=== PATIENT | female | born 1970 | race Caucasian/White ===

== ENCOUNTER → 2022-06-11 | Day surgery (SDC) | payer SELFPAY ==
--- NOTE | 2022-06-13 11:26 | USB ---
Risk Values: Trudi 5 year model risk: 0.6%. NCI Lifetime model risk: 6.1%. Pathology Description: Location: 9 o'clock. Marker Left Behind. Needle Type: Bard 14g x 10cm Cores: 4 Skin Nicks: 1 Gauge: 14 The procedure of ultrasound guided core biopsy was explained to the patient. Benefits, alternatives, and risks were discussed. An informed consent was then obtained. The patient was placed in supine positioning for imaging and for the procedure. The overlying skin was prepped and draped in usual sterile fashion. Lidocaine buffered with bicarbonate was used as anesthetic into the skin and subcutaneous tissue up to area of concern in the left breast. A vera was made with surgical scalpel. Under ultrasound guidance, a 12-gauge vacuum assisted biopsy gun device was used to obtain 8 core samples. Following this, a biopsy clip was left in lesion. It was then discovered that no samples were obtained. A post procedure mammogram for clip placement verification was then taken to confirm location. Rebiopsy was then performed Under ultrasound guidance, a 14 gauge biopsy gun device was used to obtain 3 core samples. Following this, a biopsy clip was left in lesion. The patient was transferred to mammography for physician ordered post procedure mammogram for clip placement verification. The patient tolerated the procedure well without any immediate complication. The patient was kept in the radiology department for short stay after the procedure and then discharged home in stable condition. Impression: Successful, ultrasound guided core biopsy of area of concern in the left breast, full pathology results to follow. 2 biopsy clips were placed one on each side of the lesion. Pathology Results: Result: Benign, Fibroadenoma. LEFT BREAST, NINE O'CLOCK, CORE BIOPSY: Fibroepithelial lesion with myxoid change, favor fibroadenoma. Close clinical follow up with correlation with imaging studies is suggested, as indicated. Overall Assessment: Benign Management: Diagnostic Breast Ultrasound of the left breast in 6 months. Electronically signed and approved by: Kelvin Foss DO
== END ==
LOC: RADUSWWP 07:56
PROVIDERS: ATTEND Surgery
DX: D24.2 Benign neoplasm of left breast (principal); N64.89 Other specified disorders of breast
CPT/HCPCS: 88305; 19083; A4648

== ENCOUNTER → 2022-06-20 | Outpatient (CLI) | payer OTHER ==
--- NOTE | 2022-06-11 11:09 | MM ---
Reason for Exam: Post Procedure Mammogram. Risk Values: Trudi 5 year model risk: 0.6%. NCI Lifetime model risk: 6.1%. Tissue Density: Left: The breast tissue is heterogeneously dense. This may lower the sensitivity of mammography. Overall Assessment: Post procedure mammogram for marker placement Management: Post Mammogram for Galo Placement Electronically signed and approved by: Kelvin Foss DO
--- NOTE | 2022-06-11 11:10 | MM ---
Reason for Exam: Additional evaluation requested from abnormal screening. Risk Values: Trudi 5 year model risk: 0.6%. NCI Lifetime model risk: 6.1%. Tissue Density: Left: The breast tissue is heterogeneously dense. This may lower the sensitivity of mammography. Overall Assessment: Post procedure mammogram for marker placement Management: Post Mammogram for Galo Placement Electronically signed and approved by: Kelvin Foss DO
--- NOTE | 2022-06-20 16:28 | P.GSHP ---
History of Present Illness H&P Date: 06/20/22 Chief Complaint: probable fibroadenoma left breast Laverne is a 51 year old white female status post bilateral screening mammogram on [id number]. Chronic nodularity in the right breast was noted. Focal asymmetry in the left breast required additional evaluation. He subsequently underwent a left breast diagnostic mammogram and left breast ultrasound. Left breast ultrasound revealed a 0.7 x 0.8 cm lesion for which core [place]. [place] [id number]. Pathology revealed fibroepithelial lesion with myxoid change, fever fibroadenoma. The x-rays were reviewed with Dr. James and person and it is felt to be benign concordant. The patient did not feel any lumps masses or nodules of concern in her breast. This was a routine screening mammogram. He tolerated the biopsy without difficulty. She has never had any surgery on her breast in the past. Not had any recent trauma or infection in the past. Caffeine: 2 cups coffee/day nicotine: none stopped 5 years ago chocolate: dark chocolate daily BCP: 5 eyars Family History: maternal grandmother: cervical cancer father: prostate cancer Hormonal History: menarche: 14 M1, breast fed: no, age at first : 19 hysterectomy done 1 year ago for fibroids left ovaries Surgical History: Hysterectomy did not remove ovaries 1/2 thyroid removed for a nodules not cancer Medical History: Hypothyroid Social history: Nicotine: As above Alcohol: social on weekends drugs: none - Constitutional Constitutional: Denies chills, Denies fever - EENT Eyes: denies blurred vision, denies pain Ears: deny: decreased hearing, tinnitus Ears, nose, mouth and throat: Denies headache, Denies sore throat - Breasts Breasts: bilateral: as per HPI - Cardiovascular Cardiovascular: Denies chest pain, Denies shortness of breath - Respiratory Respiratory: Denies cough, Denies 7 - Gastrointestinal Gastrointestinal: Denies abdominal pain, Denies diarrhea, Denies nausea, Denies vomiting - Genitourinary (Female) Genitourinary: Denies dysuria, Denies hematuria - Menstruation Menstruation: Reports post hysterectomy - Musculoskeletal Musculoskeletal: Denies myalgias - Integumentary Integumentary: Denies pruritus, Denies rash - Neurological Neurological: Denies numbness, Denies weakness - Psychiatric Psychiatric: Denies anxiety, Denies depression - Endocrine Endocrine: Denies fatigue, Denies weight change - Hematologic/Lymphatic Comment: none - Allergic/Immunologic Allergic/Immunologic: Reports as per HPI Past Medical History Past Medical History: Thyroid Disorder History of Any Multi-Drug Resistant Organisms: None Reported Past Surgical History: Hysterectomy Additional Past Surgical History / Comment(s): partial thyroidectomy 2010 Past Anesthesia/Blood Transfusion Reactions: No Reported Reaction Past Psychological History: No Psychological Hx Reported Smoking Status: Former smoker Past Alcohol Use History: Occasional Additional Past Alcohol Use History / Comment(s): quit smoking 2017 Past Drug Use History: None Reported Medications and Allergies Home Medications Medication Instructions Recorded Confirmed Type Levothyroxine Sodium [Synthroid] 100 mcg PO DAILY 05/30/22 06/20/22 History Allergies Allergy/AdvReac Type Severity Reaction Status Date / Time No Known Allergies Allergy Verified 06/20/22 16:04 Surgical - Exam Vital Signs Temp Pulse Resp BP Pulse Ox 97.4 F L 100 17 139/86 97 06/20/22 16:05 06/20/22 16:05 06/20/22 16:05 06/20/22 16:05 06/20/22 16:05 - General no distress - Eyes normal ocular movement - ENT no hearing loss - Neck trachea midline - Respiratory normal respiratory effort - Cardiovascular Rhythm: regular Heart Sounds: normal: S1, S2 - Abdomen Abdomen: soft, non tender, no guarding, no rigid, no rebound - Integumentary normal turgor - Musculoskeletal normal gait, normal posture - Psychiatric oriented to time, oriented to person, oriented to place, speech is normal, memory intact Breast Exam: BRA: 36C inspection: bilateral grade 2 ptosis Palpation: Right breast multiple positional exam fibrocystic changes in the 12 o'clock position higher to the chest wall that appears to be a sebaceous cyst which is tender to palpation this does not appear to be in the parenchyma of the breast Right axilla: No adenopathy of concern Left breast: Multiple positional exam fibrocystic changes no dominant masses or nodules of concern Left axilla: No adenopathy of concern Results Mammogram and ultrasound reviewed with Dr. James Assessment and Plan Assessment: Impression: Right breast subcutaneous nodule most likely sebaceous cyst not seen radiographically of concern Left breast area of concern status post core biopsy most likely fibroadenoma Plan: Repeat left breast ultrasound in 6 months with a physician exam at that time to ascertain that this is not increasing in size Close surveillance of sebaceous cyst/have given the patient the option of resection in the operating room of this and she has declined Cc: Mattie Jacobo
[2022-06-20 16:36] VITALS: BP 139/86; PULSE 100; RESP 17; TEMP 97.4
== END ==
LOC: WWCWWP 15:56
PROVIDERS: ATTEND Surgery
DX: Z01.411 Encounter for gynecological examination (general) (routine) with abnormal findings (principal); Z87.891 Personal history of nicotine dependence
CPT/HCPCS: 77065

== ENCOUNTER → 2022-12-29 | Outpatient (CLI) | payer OTHER ==
--- NOTE | 2022-12-29 09:01 | USB ---
Reason for Exam: Follow-up at short interval from prior study. Patient History: 06/11/2022, Benign US biopsy breast VAD LT on the left side. Risk Values: Trudi 5 year model risk: 0.7%. NCI Lifetime model risk: 7.0%. Technique: Method: Targeted. Patient Position: Supine. Prior Study Comparison: 06/11/2022 Left MG diagnostic mammo LT wo CAD., [facility]. 06/11/2022 Left MG diagnostic mammo LT wo CAD., [facility]. Findings: The whole breast of the left breast, the axilla of the left breast and the retroareolar of the left breast were scanned. Imaged: Ultrasound imaging of: Area of concern, retroareolar region and axilla. Stable appearing the lesion at 9:00 4 cm from nipple, biopsy proven fibroadenoma. No evidence for organizing fluid collection or mass. Overall Assessment: Benign, BI-RAD 2 Management: Screening Mammogram of both breasts in 1 year. A clinical breast exam by your physician is recommended on an annual basis and results should be correlated with mammographic findings. This exam should not preclude additional follow-up of suspicious palpable abnormalities. Results were given to the patient verbally at the time of exam. Electronically signed and approved by: Kelvin Foss DO
== END | disposition home or self-care (01) ==
LOC: RADUSWWP 08:24
PROVIDERS: ATTEND Surgery
DX: R92.8 Other abnormal and inconclusive findings on diagnostic imaging of breast (principal)